=== PATIENT | male | born 1955 | race African-American/Black ===

== ENCOUNTER 2021-10-19 15:11 | Inpatient (IN) | payer BC ==
[2021-10-19] VITALS (15 sets, daily range): BP systolic 132–167; BP diastolic 61–115
[~2021-10-19] VITALS: Ht 167.6 cm; Wt 107.2 kg
[2021-10-19] MEDS ORDERED: ACETAMINOPHEN 325MG TABLET PO PRN ×2 (19:45→20:00)
[2021-10-19] MEDS ORDERED: CHLORHEXIDINE GLUCONATE 4% EXTERNAL USE TOP SCH (21:00)
[2021-10-19] MEDS ORDERED: BISACODYL 10MG SUPP PR PRN (21:00)
[2021-10-19] MEDS ORDERED: DIPHENHYDRAMINE 25MG CAPSULE PO PRN (21:00)
[2021-10-19] MEDS ORDERED: DOCUSATE SODIUM 100MG CAPSULE PO SCH ×2 (21:00→22:30)
[2021-10-19] MEDS ORDERED: ASCORBIC ACID 500 MG TABLET PO SCH (21:00)
[2021-10-19] MEDS ORDERED: EPOETIN ALFA-EPBX 10,000 UNIT/ML VIAL SUBCUT NR (21:30)
[2021-10-19] MEDS: AMIODARONE HCL 200 MG TABLET PO SCH (21:33)
[2021-10-19] MEDS: AMLODIPINE 5MG TABLET PO SCH (21:33)
[2021-10-19] MEDS: ATORVASTATIN CALCIUM 40MG TABLET PO SCH (21:33)
[2021-10-19] MEDS: ALLOPURINOL 300 MG TABLET PO SCH (21:34)
[2021-10-19] MEDS: ALBUTEROL (0.083%) 2.5MG/3ML NEB HHN SCH (21:46)
[2021-10-19] MEDS: ACETYLCYSTEINE 200MG/ML 20% VIAL 4ML PO SCH (21:46)
[2021-10-19 22:01] LABS: BASOPHILS % 0.7 % (0.0-2.0); EOSINOPHILS % 0.6 % (0.0-5.0); HEMATOCRIT. 39.6 % (42.0-52.0); HEMOGLOBIN. 12.8 g/dL (14.0-18.0); LYMPHOCYTES % 13.5 % (20.0-50.0); MEAN CORPUSCULAR HEMOGLOBIN 29.5 pg (28.0-32.0); MEAN CORPUSCULAR VOLUME 91.4 fL (80.0-94.0); MEAN PLATELET VOLUME 12.6 fl (7.4-10.4); MONOCYTES % 7.4 % (2.0-8.0); NEUTROPHILS % 77.8 % (40.0-76.0); PLATELET 211 x1000/uL (130-400); RED BLOOD CELL COUNT 4.33 mill/uL (4.7-6.1); RED CELL DISTRIBUTION WIDTH 16.3 % (11.6-14.6)
[2021-10-19 22:07] LABS: CHLORIDE 102 mEq/L (98-107)
[2021-10-19 22:16] LABS: CREATINE KINASE 70 IU/L (39-308)
[2021-10-19 22:19] LABS: CREATINE KINASE MB FRACTION < 1.0 ng/mL (0.5-3.6)
[2021-10-20] VITALS (92 sets, daily range): BP systolic 53–158; BP diastolic 24–113
[2021-10-20] MEDS: ALBUTEROL (0.083%) 2.5MG/3ML NEB HHN SCH ×2 (01:35→08:54)
[2021-10-20] MEDS ORDERED: VANCOMYCIN 1 G PREMIX 200 ML IV PRN (02:30)
[2021-10-20] MEDS: ALLOPURINOL 300 MG TABLET PO SCH ×3 (06:30→06:47)
[2021-10-20] MEDS ORDERED: THROMBIN (BOVINE) 5000 UNITS/VIAL TOP ONE ×2 (08:12→08:13)
[2021-10-20] MEDS ORDERED: POLYMYXIN B SULFATE 500000 UNITS/VIAL ONE (08:13)
[2021-10-20] MEDS ORDERED: HEPARIN 1000 UNITS/ML 10ML ONE ×3 (08:14→13:00)
[2021-10-20] MEDS ORDERED: CHLORHEXIDINE GLUCONATE 4% EXTERNAL USE TOP SCH (09:00)
[2021-10-20] MEDS: FUROSEMIDE 20MG/2ML VIAL IVP SCH (09:20)
[2021-10-20] MEDS: AMIODARONE HCL 200 MG TABLET PO SCH ×2 (09:21→21:00)
[2021-10-20] MEDS: DOCUSATE SODIUM 100MG CAPSULE PO SCH ×2 (09:21→16:16)
[2021-10-20] MEDS: AMLODIPINE 5MG TABLET PO SCH ×2 (09:21→21:00)
[2021-10-20] MEDS: METOPROLOL TARTRATE 50MG TABLET PO SCH ×2 (09:21→21:00)
[2021-10-20 09:48] LABS: INR 1.2; PARTIAL THROMBOPLASTIN TIME 29.1 sec (23.4-31.0); PROTHROMBIN TIME 12.9 sec (9.6-11.0)
[2021-10-20] MEDS ORDERED: AMINOCAPROIC ACID 5,000 MG in SODIUM CHLORIDE 0.9% 230 ML IV ONE (10:00)
[2021-10-20] MEDS ORDERED: MORPHINE SULFATE/PF 1MG/ML 10ML AMP ONE (10:50)
[2021-10-20] MEDS ORDERED: DEXAMETHASONE 4MG/ML 1ML VIAL ONE (11:01)
[2021-10-20] MEDS ORDERED: ROCURONIUM BROMIDE 10MG/ML VIAL 5ML IV ONE ×2 (11:27→12:05)
[2021-10-20] MEDS ORDERED: CEFAZOLIN SODIUM 1000MG/VIAL ONE (11:27)
[2021-10-20] MEDS ORDERED: CALCIUM CHLORIDE 1GM/10ML SYR IV ONE ×4 (11:28→13:47)
[2021-10-20] MEDS ORDERED: AMINOCAPROIC ACID 250 MG/ML 20ML VIAL ONE ×2 (11:28→13:00)
[2021-10-20] MEDS ORDERED: AMIODARONE HCL 900 MG in DEXT 5% WATER 500 ML IV NR (11:30)
[2021-10-20] MEDS ORDERED: INSULIN REGULAR (DRIP) 100 UNITS in SODIUM CHLORIDE 0.9% 99 ML IV PRN (12:00)
[2021-10-20] MEDS ORDERED: NOREPINEPHRINE 8 MG in DEXT 5% WATER 242 ML IV PRN (12:00)
[2021-10-20] MEDS ORDERED: DEXMEDETOMIDINE 400 MCG/100 ML 100 ML IV ONE (12:00)
[2021-10-20] MEDS ORDERED: DEL NIDO ELECTROLYTE-S(PH 7.4) 1,000 ML IV PRN ×2 (12:00)
[2021-10-20] MEDS ORDERED: EPINEPHRINE 5 MG in DEXT 5% WATER 245 ML IV PRN (12:00)
[2021-10-20] MEDS ORDERED: DOBUTAMINE 250 MG PREMIX 250 ML IV PRN (12:00)
[2021-10-20] MEDS ORDERED: NICARDIPINE 40 MG/200 ML PREMIX 200 ML IV PRN (12:00)
[2021-10-20] MEDS ORDERED: PROTAMINE SULFATE 10MG/ML VIAL 25ML IV ONE (12:48)
[2021-10-20] MEDS ORDERED: EPINEPHRINE 0.1MG/ML (1:10,000) 10ML SYR ONE (12:51)
[2021-10-20] MEDS ORDERED: FUROSEMIDE 100MG/10ML VIAL ONE (12:52)
[2021-10-20] MEDS ORDERED: MANNITOL 20% (20GM/100ML) BAG 500ML PREMIX IV ONE (13:00)
[2021-10-20] MEDS ORDERED: POTASSIUM CHLORIDE 40MEQ/20ML INJ IV ONE (13:00)
[2021-10-20] MEDS ORDERED: SODIUM BICARBONATE 8.4% 1 MEQ/ML 50ML SYR IV ONE ×2 (13:00→13:47)
[2021-10-20] MEDS ORDERED: MAGNESIUM SULFATE 5GM/10ML VIAL IV ONE (13:00)
[2021-10-20] MEDS ORDERED: LIDOCAINE HCL 2% 5ML SYRINGE IV ONE (13:00)
[2021-10-20] MEDS ORDERED: HEPARIN 10,000 UNITS/ML VIAL ONE (13:00)
[2021-10-20] MEDS ORDERED: ALBUMIN HUMAN 25GM/100ML (25%) IV ONE (13:00)
[2021-10-20] MEDS ORDERED: GLYCOPYRROLATE 0.2 MG/ML 2ML VIAL ONE (13:03)
[2021-10-20] MEDS ORDERED: AMIODARONE HCL 50MG/ML 3ML VIAL IV ONE (13:03)
[2021-10-20] MEDS ORDERED: SODIUM CHLORIDE 0.9% 500 ML IV PRN (13:15)
[2021-10-20] MEDS ORDERED: OXYCODONE HCL/ACETAMINOPHEN 5/325MG TABLET PO PRN (13:15)
[2021-10-20] MEDS ORDERED: CALCIUM CHLORIDE 3,000 MG in DEXT 5% WATER 250 ML IV PRN (13:15)
[2021-10-20] MEDS ORDERED: ALBUMIN HUMAN 12.5G/250ML (5%) IV PRN (13:15)
[2021-10-20] MEDS ORDERED: MAGNESIUM 1 G PREMIX 100 ML IV PRN (13:15)
[2021-10-20] MEDS ORDERED: ONDANSETRON HCL 4MG/2ML INJ IV PRN (13:15)
[2021-10-20] MEDS ORDERED: CALCIUM CHLORIDE 5,000 MG in DEXT 5% WATER 500 ML IV PRN (13:15)
[2021-10-20] MEDS ORDERED: MAGNESIUM 2 G PREMIX 50 ML IV PRN (13:15)
[2021-10-20] MEDS ORDERED: ACETAMINOPHEN 325MG TABLET PO PRN (13:15)
[2021-10-20] MEDS ORDERED: ALBUMIN HUMAN 25GM/100ML (25%) IV PRN (13:15)
[2021-10-20] MEDS ORDERED: MAGNESIUM SULFATE 3 GM in DEXT 5% WATER 100 ML IV PRN (13:15)
[2021-10-20] MEDS ORDERED: NALOXONE HCL 0.4MG/ML VIAL IV PRN (13:30)
[2021-10-20] MEDS: DOPAMINE 400 MG PREMIX 250 ML IV PRN ×2 (13:48→18:07)
[2021-10-20 13:57] LABS: BG BASE EXCESS -4.2 mmol/L (-2.0-2.0); BG CARBOXYHEMOGLOBIN 0.9 % (0.5-1.5); BG DEOXYHEMOGLOBIN 4.7 % (0.0-5.0); BG HCO3 ACT 23.3 mmol/L (22.0-26.0); BG METHEMOGLOBIN 0.2 % (0.0-1.5); BG OXYGEN SATURATION 95.2 % (92.0-98.5); BG OXYHEMOGLOBIN 94.2 % (94.0-97.0); BG PCO2 52.8 mmHg (35.0-45.0); BG PH 7.263 (7.350-7.450); BG PO2 94.8 mmHg (75.0-100.0); BG SAMPLE SITE ALINE; BG TOTAL HEMOGLOBIN 13.3 g/dL (12.0-18.0); BG VENT MODE VENT - AC
[2021-10-20] MEDS: MAGNESIUM HYDROXIDE 400MG/5ML 30ML UDC PO SCH ×3 (14:00→22:00)
[2021-10-20] MEDS ORDERED: KCL 10MEQ/50ML PREMIX 150 ML IV PRN (14:15)
[2021-10-20] MEDS ORDERED: KCL 10MEQ/50ML PREMIX 200 ML IV PRN (14:15)
[2021-10-20] MEDS ORDERED: BLOOD SUGAR DIAGNOSTIC STRIP TEST SCH (14:15)
[2021-10-20] MEDS ORDERED: DEXTROSE 50% WATER 50ML SYRINGE IV PRN ×2 (14:15)
[2021-10-20] MEDS ORDERED: KCL 10MEQ/50ML PREMIX 100 ML IV PRN (14:15)
[2021-10-20 14:37] LABS: HEMATOCRIT. 38.7 % (42.0-52.0); HEMOGLOBIN. 12.2 g/dL (14.0-18.0); MEAN CORPUSCULAR VOLUME 91.7 fL (80.0-94.0); MEAN PLATELET VOLUME 12.7 fl (7.4-10.4); PLATELET 150 x1000/uL (130-400); RED BLOOD CELL COUNT 4.22 mill/uL (4.7-6.1); RED CELL DISTRIBUTION WIDTH 16.3 % (11.6-14.6)
[2021-10-20 14:44] LABS: INR 1.3; PARTIAL THROMBOPLASTIN TIME 26.9 sec (23.4-31.0); PROTHROMBIN TIME 13.9 sec (9.6-11.0)
[2021-10-20] MEDS ORDERED: FUROSEMIDE 100MG/10ML VIAL IVP NR (14:45)
[2021-10-20] MEDS: DEXT 5%/0.45% NACL 1000ML 1,000 ML IV SCH (14:58)
[2021-10-20] MEDS: BLOOD SUGAR DIAGNOSTIC STRIP TEST SCH ×9 (15:00→23:43)
[2021-10-20] MEDS ORDERED: SODIUM BICARBONATE 8.4% 1 MEQ/ML 50ML SYR IV NR (15:00)
[2021-10-20] MEDS ORDERED: INSULIN REGULAR (DRIP) 100 UNITS in SODIUM CHLORIDE 0.9% 100 ML IV SCH (15:30)
[2021-10-20 15:35] LABS: BG BASE EXCESS -4.5 mmol/L (-2.0-2.0); BG CARBOXYHEMOGLOBIN 0.5 % (0.5-1.5); BG DEOXYHEMOGLOBIN 4.7 % (0.0-5.0); BG FRACTION INSPIRED OXYGEN 100; BG HCO3 ACT 23.4 mmol/L (22.0-26.0); BG METHEMOGLOBIN 0.4 % (0.0-1.5); BG OXYGEN SATURATION 95.3 % (92.0-98.5); BG OXYHEMOGLOBIN 94.4 % (94.0-97.0); BG PH 7.246 (7.350-7.450); BG PO2 93.8 mmHg (75.0-100.0); BG SAMPLE SITE ALINE; BG TOTAL HEMOGLOBIN 13.4 g/dL (12.0-18.0); BG VENT MODE MASK - NRB
[2021-10-20] MEDS: BACITRACIN 15GM TUBE TOP SCH (16:16)
[2021-10-20] MEDS: FUROSEMIDE 100 MG in DEXT 5% WATER 90 ML IV SCH (16:17)
[2021-10-20] MEDS: EPINEPHRINE 5 MG in DEXT 5% WATER 245 ML IV PRN ×2 (16:21→23:13)
[2021-10-20 16:23] LABS: NUCLEATED RED BLOOD CELLS 4 /100 WBC; PLATELET ESTIMATE NORMAL
[2021-10-20] MEDS: IPRATROPIUM/ALBUTEROL 0.5-3(2.5)MG/3ML NEB HHN SCH ×2 (16:42→20:30)
[2021-10-20] MEDS ORDERED: DOCUSATE SODIUM 100MG CAPSULE PO SCH (17:00)
[2021-10-20] MEDS ORDERED: DOPAMINE 400MG/250ML PREMIX 250 ML IV ONE (18:14)
[2021-10-20 20:04] LABS: HEMATOCRIT. 39.9 % (42.0-52.0); HEMOGLOBIN. 12.3 g/dL (14.0-18.0); MEAN CORPUSCULAR HEMOGLOBIN 28.8 pg (28.0-32.0); MEAN CORPUSCULAR VOLUME 93.7 fL (80.0-94.0); MEAN PLATELET VOLUME 12.3 fl (7.4-10.4); PLATELET 165 x1000/uL (130-400); RED BLOOD CELL COUNT 4.26 mill/uL (4.7-6.1); RED CELL DISTRIBUTION WIDTH 16.6 % (11.6-14.6)
[2021-10-20] MEDS: CEFAZOLIN 1000MG PREMIX 50 ML IV SCH (20:52)
[2021-10-20 20:57] LABS: PLATELET ESTIMATE NORMAL
[2021-10-20] MEDS: ATORVASTATIN CALCIUM 40MG TABLET PO SCH (21:00)
[2021-10-20] MEDS: ALBUMIN HUMAN 25GM/100ML (25%) IV SCH (22:46)
[2021-10-21] VITALS (93 sets, daily range): BP systolic 84–156; BP diastolic 43–107
[2021-10-21] MEDS: ACETYLCYSTEINE 200MG/ML 20% VIAL 4ML PO SCH ×2 (00:22→14:53)
[2021-10-21] MEDS: ALBUTEROL (0.083%) 2.5MG/3ML NEB HHN SCH ×2 (00:22→20:41)
[2021-10-21] MEDS: DOPAMINE 400MG/250ML PREMIX 250 ML IV PRN ×2 (00:41→13:10)
[2021-10-21] MEDS: ALBUMIN HUMAN 25GM/100ML (25%) IV SCH ×2 (00:42→02:13)
[2021-10-21] MEDS: BLOOD SUGAR DIAGNOSTIC STRIP TEST SCH ×20 (00:42→22:16)
[2021-10-21] MEDS: MAGNESIUM HYDROXIDE 400MG/5ML 30ML UDC PO SCH ×4 (02:14→13:10)
[2021-10-21] MEDS: CEFAZOLIN 1000MG PREMIX 50 ML IV SCH ×3 (02:14→18:11)
[2021-10-21 02:49] LABS: HEMATOCRIT. 32.3 % (42.0-52.0); HEMOGLOBIN. 10.7 g/dL (14.0-18.0); MEAN CORPUSCULAR HEMOGLOBIN 30.4 pg (28.0-32.0); MEAN CORPUSCULAR VOLUME 91.8 fL (80.0-94.0); MEAN PLATELET VOLUME 11.3 fl (7.4-10.4); PLATELET 141 x1000/uL (130-400); RED BLOOD CELL COUNT 3.52 mill/uL (4.7-6.1); RED CELL DISTRIBUTION WIDTH 16.4 % (11.6-14.6)
[2021-10-21] MEDS: FUROSEMIDE 100 MG in DEXT 5% WATER 90 ML IV SCH ×2 (03:16→22:37)
[2021-10-21 03:30] LABS: PHOSPHORUS 4.5 mg/dL (2.5-4.9)
[2021-10-21] MEDS: INSULIN REGULAR (DRIP) 100 UNITS in SODIUM CHLORIDE 0.9% 100 ML IV SCH (07:10)
[2021-10-21 07:13] LABS: NUCLEATED RED BLOOD CELLS 3 /100 WBC; PLATELET ESTIMATE NORMAL
[2021-10-21 07:32] LABS: BG BASE EXCESS -0.3 mmol/L (-2.0-2.0); BG CARBOXYHEMOGLOBIN 0.3 % (0.5-1.5); BG DEOXYHEMOGLOBIN 5.4 % (0.0-5.0); BG FRACTION INSPIRED OXYGEN 35; BG HCO3 ACT 23.7 mmol/L (22.0-26.0); BG METHEMOGLOBIN 0.3 % (0.0-1.5); BG OXYGEN SATURATION 94.6 % (92.0-98.5); BG PCO2 36.4 mmHg (35.0-45.0); BG PH 7.432 (7.350-7.450); BG PO2 76.1 mmHg (75.0-100.0); BG SAMPLE SITE ALINE; BG TOTAL HEMOGLOBIN 10.3 g/dL (12.0-18.0); BG VENT MODE MASK - VENTI
[2021-10-21 08:56] LABS: HEMATOCRIT. 28.6 % (42.0-52.0); HEMOGLOBIN. 9.3 g/dL (14.0-18.0); MEAN CORPUSCULAR HEMOGLOBIN 29.9 pg (28.0-32.0); MEAN CORPUSCULAR VOLUME 91.9 fL (80.0-94.0); PLATELET 92 x1000/uL (130-400); RED BLOOD CELL COUNT 3.11 mill/uL (4.7-6.1); RED CELL DISTRIBUTION WIDTH 16.7 % (11.6-14.6)
[2021-10-21] MEDS: METOPROLOL TARTRATE 50MG TABLET PO SCH ×2 (09:00→21:00)
[2021-10-21] MEDS: BACITRACIN 15GM TUBE TOP SCH ×3 (09:00→17:36)
[2021-10-21] MEDS: AMLODIPINE 5MG TABLET PO SCH ×2 (09:00→21:00)
[2021-10-21] MEDS ORDERED: FAMOTIDINE 20MG/2ML VIAL IV SCH (09:00)
[2021-10-21] MEDS: IPRATROPIUM/ALBUTEROL 0.5-3(2.5)MG/3ML NEB HHN SCH ×2 (09:00→14:53)
[2021-10-21] MEDS: FUROSEMIDE 20MG/2ML VIAL IVP SCH (09:00)
[2021-10-21 09:04] LABS: PHOSPHORUS 5.2 mg/dL (2.5-4.9)
[2021-10-21 10:02] LABS: NUCLEATED RED BLOOD CELLS 2 /100 WBC; PLATELET ESTIMATE DECREASED
[2021-10-21] MEDS: DOCUSATE SODIUM 100MG CAPSULE PO SCH ×2 (10:06→17:35)
[2021-10-21] MEDS: FAMOTIDINE 20MG TABLET PO SCH (10:07)
[2021-10-21] MEDS: AMIODARONE HCL 200 MG TABLET PO SCH ×2 (10:07→21:00)
[2021-10-21] MEDS: DEXT 5%/0.45% NACL 1000ML 1,000 ML IV SCH (15:11)
[2021-10-21] MEDS: ATORVASTATIN CALCIUM 40MG TABLET PO SCH (22:16)
[2021-10-22] VITALS (96 sets, daily range): BP systolic 105–181; BP diastolic 48–130
[2021-10-22] MEDS: BLOOD SUGAR DIAGNOSTIC STRIP TEST SCH ×11 (00:29→20:39)
[2021-10-22] MEDS: OXYCODONE HCL/ACETAMINOPHEN 5/325MG TABLET PO PRN ×2 (00:37→10:49)
[2021-10-22] MEDS: ALBUTEROL (0.083%) 2.5MG/3ML NEB HHN SCH (02:17)
[2021-10-22 06:09] LABS: HEMATOCRIT. 32.6 % (42.0-52.0); HEMOGLOBIN. 10.7 g/dL (14.0-18.0); MEAN CORPUSCULAR HEMOGLOBIN 30.4 pg (28.0-32.0); MEAN CORPUSCULAR VOLUME 92.7 fL (80.0-94.0); MEAN PLATELET VOLUME 11.8 fl (7.4-10.4); PLATELET 112 x1000/uL (130-400); RED BLOOD CELL COUNT 3.52 mill/uL (4.7-6.1); RED CELL DISTRIBUTION WIDTH 16.5 % (11.6-14.6)
[2021-10-22 06:17] LABS: PHOSPHORUS 3.5 mg/dL (2.5-4.9)
[2021-10-22 06:51] LABS: NUCLEATED RED BLOOD CELLS 2 /100 WBC; PLATELET ESTIMATE SLIGHTLY DECREASED
[2021-10-22] MEDS: DOPAMINE 400MG/250ML PREMIX 250 ML IV PRN (07:09)
[2021-10-22] MEDS: INSULIN REGULAR (DRIP) 100 UNITS in SODIUM CHLORIDE 0.9% 100 ML IV SCH (07:11)
[2021-10-22] MEDS: MAGNESIUM 1 G PREMIX 100 ML IV SCH ×2 (08:08→09:31)
[2021-10-22] MEDS ORDERED: DIPHENHYDRAMINE 25MG CAPSULE PO PRN (08:15)
[2021-10-22] MEDS: ACETYLCYSTEINE 200MG/ML 20% VIAL 4ML PO SCH (08:30)
[2021-10-22] MEDS: IPRATROPIUM/ALBUTEROL 0.5-3(2.5)MG/3ML NEB HHN SCH ×5 (08:30→20:43)
[2021-10-22] MEDS: AMLODIPINE 5MG TABLET PO SCH ×2 (09:00→20:04)
[2021-10-22] MEDS: METOPROLOL TARTRATE 25MG TABLET PO SCH ×2 (09:00→20:04)
[2021-10-22] MEDS: BACITRACIN 15GM TUBE TOP SCH (09:00)
[2021-10-22] MEDS: FAMOTIDINE 20MG TABLET PO SCH (09:36)
[2021-10-22] MEDS: AMIODARONE HCL 200 MG TABLET PO SCH ×2 (09:36→20:04)
[2021-10-22] MEDS: ASPIRIN 81MG TABLET PO SCH (09:51)
[2021-10-22] MEDS ORDERED: PNEUMOCOCCAL 23-VAL P-SAC VAC 0.5 ML IM ONE (14:30)
[2021-10-22] MEDS: DEXT 5%/0.45% NACL 1000ML 1,000 ML IV SCH (15:04)
[2021-10-22] MEDS ORDERED: DEXTROSE 50% WATER 50ML SYRINGE IV PRN (16:30)
[2021-10-22] MEDS: DOCUSATE SODIUM 250MG CAPSULE PO SCH (16:37)
[2021-10-22] MEDS: INSULIN LISPRO 100 UNITS/ML SUBCUT SCH ×2 (17:58→20:39)
[2021-10-22] MEDS: ATORVASTATIN CALCIUM 40MG TABLET PO SCH (20:04)
[2021-10-22] MEDS ORDERED: FAMOTIDINE 20MG TABLET PO SCH (21:00)
[2021-10-22] MEDS: HYDRALAZINE HCL 25MG TABLET PO SCH (22:33)
[2021-10-22] MEDS: MORPHINE SULFATE 2 MG/ML CPJ (NOT FOR IM USE) IV PRN (22:42)
[2021-10-23] VITALS (47 sets, daily range): BP systolic 109–183; BP diastolic 60–152
[2021-10-23] MEDS: HYDRALAZINE 20MG/ML VIAL IV PRN ×2 (00:07→14:18)
[2021-10-23] MEDS: ACETYLCYSTEINE 200MG/ML 20% VIAL 4ML PO SCH (00:25)
[2021-10-23] MEDS: IPRATROPIUM/ALBUTEROL 0.5-3(2.5)MG/3ML NEB HHN SCH ×6 (00:26→20:24)
[2021-10-23] MEDS: MORPHINE SULFATE 2 MG/ML CPJ (NOT FOR IM USE) IV PRN (03:34)
[2021-10-23] MEDS ORDERED: FUROSEMIDE 40MG/4ML VIAL IVP NR ×2 (04:00→11:50)
[2021-10-23] MEDS: HYDRALAZINE HCL 25MG TABLET PO SCH (05:46)
[2021-10-23 06:20] LABS: HEMATOCRIT. 37.7 % (42.0-52.0); HEMOGLOBIN. 12.3 g/dL (14.0-18.0); MEAN CORPUSCULAR HEMOGLOBIN 29.9 pg (28.0-32.0); MEAN CORPUSCULAR VOLUME 91.9 fL (80.0-94.0); MEAN PLATELET VOLUME 10.8 fl (7.4-10.4); PLATELET 173 x1000/uL (130-400); RED CELL DISTRIBUTION WIDTH 16.6 % (11.6-14.6)
[2021-10-23 06:36] LABS: PHOSPHORUS 3.2 mg/dL (2.5-4.9)
[2021-10-23] MEDS: BLOOD SUGAR DIAGNOSTIC STRIP TEST SCH ×4 (07:57→21:58)
[2021-10-23] MEDS: INSULIN LISPRO 100 UNITS/ML SUBCUT SCH ×4 (08:20→21:00)
[2021-10-23] MEDS: AMIODARONE HCL 200 MG TABLET PO SCH ×2 (08:36→21:56)
[2021-10-23] MEDS: AMLODIPINE 5MG TABLET PO SCH (08:36)
[2021-10-23] MEDS: FUROSEMIDE 40MG TABLET PO SCH (08:37)
[2021-10-23] MEDS: METOPROLOL TARTRATE 50MG TABLET PO SCH ×2 (08:37→21:57)
[2021-10-23] MEDS: ASPIRIN 81MG TABLET PO SCH (08:37)
[2021-10-23] MEDS: FAMOTIDINE 20MG TABLET PO SCH (08:37)
[2021-10-23] MEDS: DOCUSATE SODIUM 250MG CAPSULE PO SCH ×2 (08:37→17:52)
[2021-10-23] MEDS ORDERED: METOPROLOL TARTRATE 25MG TABLET PO SCH (09:00)
[2021-10-23 10:20] LABS: NUCLEATED RED BLOOD CELLS 1 /100 WBC; PLATELET ESTIMATE NORMAL
[2021-10-23] MEDS ORDERED: LACTULOSE 20G/30ML UDC PO PRN (11:30)
[2021-10-23] MEDS: HYDRALAZINE HCL 50MG TABLET PO SCH ×2 (14:17→21:58)
[2021-10-23] MEDS: MINERAL OIL 30ML BOTTLE PO SCH (17:52)
[2021-10-23] MEDS: AMLODIPINE 10MG TABLET PO SCH (21:56)
[2021-10-23] MEDS: ATORVASTATIN CALCIUM 40MG TABLET PO SCH (21:57)
[2021-10-23] MEDS: METOCLOPRAMIDE HCL 10MG/2ML VIAL IV SCH (21:58)
[2021-10-24] VITALS (28 sets, daily range): BP systolic 113–159; BP diastolic 63–97
[2021-10-24] MEDS: IPRATROPIUM/ALBUTEROL 0.5-3(2.5)MG/3ML NEB HHN SCH ×5 (00:18→16:26)
[2021-10-24] MEDS: METOCLOPRAMIDE HCL 10MG/2ML VIAL IV SCH ×3 (00:30→12:39)
[2021-10-24 05:43] LABS: HEMATOCRIT. 34.4 % (42.0-52.0); HEMOGLOBIN. 11.3 g/dL (14.0-18.0); MEAN CORPUSCULAR HEMOGLOBIN 30.1 pg (28.0-32.0); MEAN CORPUSCULAR VOLUME 91.5 fL (80.0-94.0); MEAN PLATELET VOLUME 10.2 fl (7.4-10.4); PLATELET 146 x1000/uL (130-400); RED BLOOD CELL COUNT 3.76 mill/uL (4.7-6.1)
[2021-10-24 06:12] LABS: CHLORIDE 102 mEq/L (98-107)
[2021-10-24] MEDS: HYDRALAZINE HCL 50MG TABLET PO SCH ×2 (06:36→13:13)
[2021-10-24] MEDS: INSULIN LISPRO 100 UNITS/ML SUBCUT SCH ×2 (08:20→12:40)
[2021-10-24] MEDS: ASPIRIN 81MG TABLET PO SCH (08:23)
[2021-10-24] MEDS: FAMOTIDINE 20MG TABLET PO SCH (08:23)
[2021-10-24] MEDS: AMIODARONE HCL 200 MG TABLET PO SCH (08:23)
[2021-10-24] MEDS: METOPROLOL TARTRATE 50MG TABLET PO SCH (08:23)
[2021-10-24] MEDS: AMLODIPINE 10MG TABLET PO SCH (08:23)
[2021-10-24] MEDS: FUROSEMIDE 40MG TABLET PO SCH (08:24)
[2021-10-24] MEDS: MINERAL OIL 30ML BOTTLE PO SCH (08:25)
[2021-10-24] MEDS: DOCUSATE SODIUM 250MG CAPSULE PO SCH (08:26)
[2021-10-24] MEDS ORDERED: BUMETANIDE 2.5MG/10ML VIAL IV SCH (08:30)
[2021-10-24] MEDS: BLOOD SUGAR DIAGNOSTIC STRIP TEST SCH ×2 (08:32→12:29)
[2021-10-24] MEDS ORDERED: MINERAL OIL 30ML BOTTLE PO SCH (09:00)
[2021-10-24 11:05] LABS: PLATELET ESTIMATE NORMAL
[2021-10-24] MEDS ORDERED: APIXABAN 5 MG TABLET PO SCH (17:00)
== END 2021-10-24 17:45 | disposition home health service (06) | DRG 219 ==
LOC: CVICU 18:06 → 3WST 10-20 11:34 → CVICU 10-20 11:42
PROVIDERS: ADMIT Internal Medicine; ATTEND Thoracic Surgery (Cardiothoracic Vascular Surgery)
PROC: 3E080GC Introduction of Other Therapeutic Substance into Heart, Open Approach (ICD-10-PCS; principal; 2021-10-20)
PROC: 02RF0JZ Replacement of Aortic Valve with Synthetic Substitute, Open Approach (ICD-10-PCS; 2021-10-20)
PROC: 5A1221Z Performance of Cardiac Output, Continuous (ICD-10-PCS; 2021-10-20)
PROC: B246ZZ4 Ultrasonography of Right and Left Heart, Transesophageal (ICD-10-PCS; 2021-10-20)
DX: I35.8 Other nonrheumatic aortic valve disorders (principal); J96.01 Acute respiratory failure with hypoxia; I48.20 Chronic atrial fibrillation, unspecified; N17.9 Acute kidney failure, unspecified; I48.92 Unspecified atrial flutter; I38 Endocarditis, valve unspecified; I13.0 Hypertensive heart and chronic kidney disease with heart failure and stage 1 through stage 4 chronic kidney disease, or unspecified chronic kidney disease; I50.22 Chronic systolic (congestive) heart failure; I82.611 Acute embolism and thrombosis of superficial veins of right upper extremity; K56.7 Ileus, unspecified; N18.9 Chronic kidney disease, unspecified; E03.9 Hypothyroidism, unspecified; E78.5 Hyperlipidemia, unspecified; Z20.822 Contact with and (suspected) exposure to COVID-19; E88.09 Other disorders of plasma-protein metabolism, not elsewhere classified; I27.29 Other secondary pulmonary hypertension; D64.9 Anemia, unspecified; E66.9 Obesity, unspecified; M10.9 Gout, unspecified; D72.829 Elevated white blood cell count, unspecified; Z88.0 Allergy status to penicillin; Z86.79 Personal history of other diseases of the circulatory system; Z95.2 Presence of prosthetic heart valve; Z86.718 Personal history of other venous thrombosis and embolism; Z68.38 Body mass index [BMI] 38.0-38.9, adult
CPT/HCPCS: 36415; 36600; 71045; 74018; 80048; 80053; 82375; 82550; 82553; 82805; 82962; 83735; 84100; 84439; 84443; 84484; 85025; 85347; 85651; 86850; 86900; 86920; 87070; 87075; 87426; 88304; 88311; 90732; 93005; 93306; 93971; 94002; 94640; 97110; 97116; 97162; 97166; 97530; 97535; C1725; C1729; C1751; C1758; C1769; J0282; J0360; J0690; J0885; J1100; J1265; J1644; J1815; J1940; J2270; J2274; J2310; J2720; J2765; J3475; J3480; J3490; J7050; J7060; J7608; L3908; P9047; Q0163; Q9957